=== PATIENT | male | born 1965 | race Caucasian/White ===

== ENCOUNTER 2024-10-29 16:18 | Emergency (ER) | payer OTHER, SELFPAY ==
--- NOTE | 2024-10-29 16:23 | ED.URI ---
HPI - URI/Sore Throat General Chief Complaint: Upper Respiratory Infection Stated Complaint: Cold Symptoms/Congestion Time Seen by Provider: 10/29/24 16:20 Source: patient Mode of arrival: ambulatory Limitations: no limitations History of Present Illness HPI Narrative: Patient is a 59-year-old male who presents with 3 weeks of cough and congestion. Patient has been taking [id number] medicine and states he had a few days of feeling better but symptoms returned and worsened 3 days ago. Patient denies any fever, chills, nausea, vomiting, diarrhea. Patient has history of COPD, pneumonia and bronchitis. Related Data Allergies Allergy/AdvReac Type Severity Reaction Status Date / Time Penicillins Allergy Mild HIVES/SWELL Verified 10/29/24 17:21 ING Review of Systems Review of Systems: All systems reviewed & are unremarkable except as noted in HPI and below Constitutional: Constitutional: Denies body ache(s), Denies chills, Denies fatigue, Denies fever(s), Denies headache(s), Denies malaise and Denies weakness Eyes: Eyes: Denies blurry vision, Denies itchy eyes and Denies loss of vision ENT: Denies otalgia, Denies headache(s), Reports nasal congestion, Denies sinus pain and Denies sore throat Cardiovascular: Cardiovascular: Denies chest pain, Denies irregular heart rhythm and Denies dyspnea Respiratory: Respiratory: Reports cough and Denies dyspnea Gastrointestinal: Gastrointestinal: Denies abdominal pain, Denies diarrhea, Denies nausea and Denies vomiting Musculoskeletal: Musculoskeletal: Denies back pain, Denies myalgias and Denies arthralgias Integumentary/Breasts: Skin/Breast: Denies pruritus and Denies rash Neurologic: Denies headache(s), Denies loss of vision and Denies weakness Psychiatric: Psychiatric: Reports no additional psychiatric complaints Endocrine: Endocrine: Denies fatigue Allergic/Immunologic: Allergic/Immunologic: Denies itchy eyes PMFSH Comments At time of signature, agree with nursing past medical, surgical, social and family history. There is no relevant family history pertinent to the presenting complaint. Exam Const: General: cooperative, healthy appearing, comfortable, no acute distress and well nourished Nutritional Appearance: well nourished Orientation/consciousness: patient oriented x3 Limitations: no limitations HENMT: Head: normal to inspection, normocephalic and atraumatic Ears: hearing grossly normal bilaterally, external ears normal, TM's normal bilaterally, EAC's normal and no periauricular adenopathy Face/Nose/Sinus: Normal external nose present, Abnormal mucous membranes and turbinates present erythematous bilateral and diffuse, normal facial exam, sinuses nontender and face symmetric Face and sinus: normal facial exam, sinuses nontender and face symmetric Mouth: Yes Normal oral and palatal mucosa present, Yes lip normal, Yes tongue normal, Yes Normal salivary glands and ducts present, Yes oropharynx normal and Yes moist mucous membranes Teeth and gingiva: dentition normal Throat: posterior oropharynx normal, tonsils normal and uvula midline Eyes: General: appearance normal, both eyes and all related structures Alignment and Position: alignment normal and position normal Periorbital: periorbital findings normal Eyelids: eyelids normal Pupils: Equal, round and reactive pupils present Neck: Neck: normal visual inspection, full ROM, no lymphadenopathy and supple Chest: Chest palpation & inspection: normal inspection of the chest and normal palpation of entire chest wall Resp: Effort & Inspection: normal respiratory effort and able to speak in complete sentences Auscultation: crackles (course) diffuse, no rales, no rhonchi, no wheezes and diminished lung sounds on the right in the lower lung sanchez Cardio: Rate: regular rate Rhythm: regular rhythm Heart sounds: S1 normal heart sound present and S2 normal heart sound present GI: Inspection: normal to inspection Skin: General skin exam: normal color and no rashes or lesions noted Neuro: General: patient oriented x3 and moves all extremities Cranial nerves: Yes Equal, round and reactive pupils present Speech: normal speech Gait exam (Neuro): Normal gait present Extrem: General: normal to inspection, full ROM and no edema Psych: Appearance: grossly normal and well kempt Mental Status: mental status grossly normal Speech and movement: Normal speech and movement present Affect: normal affect Attitude: cooperative Thought process: Normal thought process present Course Course Emergency Course: Discharge instructions reviewed with patient, as well as provided in writing per nursing staff. The instructions also include specific and strict return/GO TO THE ER as well as f/u information. All questions have been answered, and the patient deny any further questions with discharge and discharge plan. Portions of this record may have been created with voice recognition software Level of Care: Express Care Visit Vital Signs Vital signs: Vital Signs Temperature 36.8 C 10/29/24 16:38 Pulse Rate 73 10/29/24 16:38 Respiratory Rate 16 10/29/24 16:38 Blood Pressure 117/75 10/29/24 16:38 Pulse Oximetry 96 10/29/24 16:38 Temperature 36.8 C 10/29/24 16:38 Pulse Rate 73 10/29/24 16:38 Respiratory Rate 16 10/29/24 16:38 Blood Pressure 117/75 10/29/24 16:38 Pulse Oximetry 96 10/29/24 16:38 Reviewed MDM - URI/Sore Throat MDM Narrative Medical decision making narrative: Pt well hydrated appearing, in no respiratory distress, hemodynamically stable. Recommend supportive care. The patient is stable at time of discharge the clinical impression was discussed and the patient was given the opportunity to ask questions, which were addressed as completely as possible given the information available at present. Anticipatory guidance and return to care precautions were discussed and the importance of primary care follow-up was stressed and encouraged. The patient voiced understanding of the plan, indications to return, and the need for follow-up. Differential diagnosis considered: Mcnulty virus, strep pharyngitis, allergic rhinitis, upper respiratory tract infection, sinusitis, rhinosinusitis, nasopharyngitis. viral pharyngitis, otitis media, otitis externa, otitis effusion, foreign body, cerumen impaction, viral syndrome, and influenza.? Exam findings show no acute concerns or changes; patient is non-toxic appearing and is in no distress.? Patient is appropriate for outpatient treatment and follow-up.? Discharge Plan Discharge Clinical Impression: Upper respiratory infection with cough and congestion Patient Disposition: Home, Self-Care Condition: Stable Instructions: Upper Respiratory Infection (ED) Additional Instructions: Take antibiotic as prescribed. Take steroids in the morning with food. Use liquid cough medicine as needed. Use inhaler with spacer as needed. Other symptomatic treatments include: -Alternate Tylenol and Motrin per package directions for fever or pain. -Antihistamine medication such as Benadryl at night and Zyrtec/Claritin/Xuan during the day can help improve symptoms. -Use Flonase twice a day for 5 days then daily to help reduce the inflammation and dry up your sinuses. -You can also use Sudafed or Mucinex. Be sure to drink plenty of water with these medications at least 8 ounces with every dose and it is important to drink 8 to 10 glasses of water per day. Water is a natural decongestant -Eat and drink things that are easy to swallow, like tea or soup, or popsicles. -Oral rinses such as: Salt water gargles and/or may use topical anesthetic (eg. Chloraseptic spray) or lozenges to relieve dryness or throat pain). -Frequent hand washing or hand passenger interline clerk is one of the best ways to prevent spread of infection. -Using a vaporizer or humidifier at night will also help thin secretions and help with coughing up phlegm. -Follow up with primary care provider in 3-5 days if condition is not improving - For new or worsening symptoms go directly to the nearest ER Patient Language: Welsh Prescriptions: New promethazine-DM 6.25-15 mg/5 mL syrup 5 ml PO Q4-6H PRN (Reason: cough) Qty: 118 0RF azithromycin 250 mg tablet See Rx Instructions .ROUTE .COMPLEX Qty: 6 0RF Rx Instructions: For 250 mg dose pack: take 500 mg today (day 1), then 250 mg for 4 days (days 2-5) prednisone 20 mg tablet 40 mg PO DAILY 5 Days Qty: 10 0RF amoxicillin 875 mg tablet 875 mg PO Q12H 7 Days Qty: 14 0RF albuterol sulfate 90 mcg/actuation HFA aerosol inhaler 2 puff inhalation QID PRN (Reason: shortness of breath or wheezing) Qty: 6.7 0RF fluticasone propionate [Flonase Allergy Relief] 50 mcg/actuation spray,suspension 1 spray intranasal DAILY Qty: 16 0RF Rx Instructions: administer into each nostril loratadine 10 mg tablet 10 mg PO DAILY Qty: 30 0RF (DME) Aerochamber MV Spacer See Rx Instructions .Route Qty: 1 0RF Rx Instructions: As directed Follow-up/Referrals: PHYSICIAN,SURGICAL DENTAL ASSISTANT [Primary Care Provider] - Justice Rubalcava MD [Physician] - 3 Days ([facility]) Time of Disposition: 17:21
[2024-10-29 16:38] VITALS: BP 117/75; PULSE 73; RESP 16; TEMP 36.8; O2SAT 96
== END 2024-10-29 17:23 | disposition home or self-care (01) ==
PROVIDERS: Emergency Provider Nurse Practitioner Family
DX: J06.9 Acute upper respiratory infection, unspecified (principal)
CPT/HCPCS: 99203; G0463

== ENCOUNTER 2025-02-03 12:29 | Emergency (ER) | payer OTHER, SELFPAY ==
[2025-02-03 12:38] VITALS: BP 128/81; PULSE 91; RESP 16; TEMP 36.8; O2SAT 97
[2025-02-03 12:58] LABS: EDCOVIDSCREEN Negative (Negative); EDINFLUASCREEN Negative (Negative); EDINFLUBSCREEN Negative (Negative); EDSTREPNEGPOS1 Negative (Negative)
--- NOTE | 2025-02-03 14:53 | ED_ITS ---
HPI - URI/Sore Throat General Chief Complaint: Upper Respiratory Infection Stated Complaint: HEAD/CHEST COLD Time Seen by Provider: 02/03/25 13:10 Source: patient and RN notes reviewed Mode of arrival: ambulatory Limitations: no limitations History of Present Illness HPI Narrative: 59-year-old male presents Express Care complaining of upper respiratory symptoms for 2 days. Patient reports congestion, cough, sore throat. Patient reports coughing up phlegm as well Patient is taking [id number] Zyrtec and Flonase with some relief. Patient denies any chest pain, shortness of breath, earache, fevers, body aches, chills. Patient denies any significant past medical history Related Data Allergies Allergy/AdvReac Type Severity Reaction Status Date / Time Penicillins Allergy Mild HIVES/SWELL Verified 02/03/25 12:43 ING Review of Systems Review of Systems: CONSTITUTIONAL: Denies fever, chills, or sweats. EYES: Denies visual changes, redness, or discharge. ENT: Denies rhinorrhea, or otalgia. Positive for sore throat and congestion CARDIOVASCULAR: Denies chest pain, palpitations, or edema. RESPIRATORY: Positive for cough negative for dyspnea. GASTROINTESTINAL: Denies abdominal pain, nausea, vomiting, or diarrhea. GENITOURINARY: Denies dysuria or hematuria. SKIN: Denies rash or itching. MUSCULOSKELETAL: Denies back pain, joint pain, or myalgia. NEUROLOGIC: Denies headache, numbness, or weakness. PSYCHIATRIC: Denies anxiety or depression. All other systems reviewed are negative, except as documented in HPI. PMFSH Comments At the time of my signature, I reviewed and agree with the nursing past medical, surgical, social, and family history. There is no relevant family history pertinent to the patient complaint. Exam Narrative: GENERAL: This is a well-nourished, well-developed adult, in no apparent distress. They are non ill-appearing, nontoxic appearing. HEAD: normocephalic, atraumatic. EYES: Sclera clear/white. Vision is grossly intact. Conjunctiva injected and watery discharge. EARS: External ears normal, auditory canals clear and without drainage, TMs normal without perforation. Hearing grossly intact. NOSE: External nose normal with no obvious nasal discharge, nasal turbinates are erythematous, no rhinorrhea. THROAT: Mucous membranes moist, posterior pharynx erythemic without swelling. Nasal drip present. Uvula midline. NECK: Neck supple, non-tender without lymphadenopathy, masses or thyromegaly. CARDIOVASCULAR: Regular rate and rhythm without murmurs, gallops, or rubs. RESPIRATORY: Clear to auscultation. Breath sounds equal bilaterally. No wheezes, rales, or rhonchi. SKIN: warm, Dry, intact with no suspicious lesions or rash, good texture and turgor. NEURO: awake, alert, and oriented to person, place and time. There were no obvious focal neurologic abnormalities. EXTREMITIES: No joint tenderness, effusion, or edema noted. Course Course Level of Care: Express Care Visit Vital Signs Vital signs: Vital Signs Temperature 98.3 F 02/03/25 12:38 Pulse Rate 91 02/03/25 12:38 Respiratory Rate 16 02/03/25 12:38 Blood Pressure 128/81 02/03/25 12:38 Pulse Oximetry 97 02/03/25 12:38 Oxygen Delivery Room Air 02/03/25 12:38 Temperature 98.3 F 02/03/25 12:38 Pulse Rate 91 02/03/25 12:38 Respiratory Rate 16 02/03/25 12:38 Blood Pressure 128/81 02/03/25 12:38 Pulse Oximetry 97 02/03/25 12:38 Oxygen Delivery Room Air 02/03/25 12:38 Reviewed MDM - URI/Sore Throat MDM Narrative Medical decision making narrative: COVID and flu swab were negative. Rapid strep is negative. Throat culture pending. Symptoms are likely viral in etiology. Patient states that he has tried benzonatate in the past and it has not help with his cough and states promethazine has worked before. Will prescribe promethazine as needed for cough. Will also prescribe albuterol for any wheezing and cough. Discussed physical exam findings. Advised supportive measures and signs/symptoms to go to the ER. Pt is appropriate for outpt treatment and f/u. Differential Diagnosis Differential diagnosis: Likely upper respiratory infection, viral infection, bronchitis and pharyngitis Lab Data Attestation: I reviewed the patient's lab results. Labs: Lab Results 02/03/25 Range/Units 12:56 POC Influenza A Ag Negative (Negative) POC Influenza B Ag Negative (Negative) POC SARS CoV-2 Ag Negative (Negative) POC Grp A Strep Screen Negative (Negative) Critical Care Time Critical Care Time Critical Care Time: No Discharge Plan Discharge Clinical Impression: Upper respiratory infection Qualifiers: URI type: unspecified viral URI Qualified Code(s): J06.9 - Acute upper respiratory infection, unspecified Patient Disposition: Home Condition: Stable Instructions: Upper Respiratory Infection (ED) Additional Instructions: Her COVID and flu were negative. Your rapid strep swab was negative today at [facility]. You will be notified in a few days if the culture comes back positive for strep, and appropriate antibiotics will be called in for have you at that time. Your symptoms are likely due to a viral illness, which is not treated with antibiotics. Viral symptoms can be present for up to 10-14 days. Please take the promethazine as directed. Do not drive or operate heavy machinery if while taking this medication as it can make you drowsy. Use the albuterol inhaler as needed for cough or wheezing. Take Tylenol ibuprofen for fever or pain. Rest and stay hydrated. Follow up with your PCP in 5 days if symptoms are not improving. Go to the ER immediately if you develop difficulty breathing or swallowing Patient Language: Indonesian Prescriptions: New albuterol sulfate [Ventolin HFA] 90 mcg/actuation HFA aerosol inhaler 2 puff inhalation QID PRN (Reason: shortness of breath or wheezing) Qty: 8.5 0RF promethazine-DM 6.25-15 mg/5 mL syrup 5 ml PO Q4-6H PRN (Reason: cough) 3 Days Qty: 118 0RF No Action promethazine-DM 6.25-15 mg/5 mL syrup 5 ml PO Q4-6H PRN (Reason: cough) Qty: 118 0RF azithromycin 250 mg tablet See Rx Instructions .ROUTE .COMPLEX Qty: 6 0RF Rx Instructions: For 250 mg dose pack: take 500 mg today (day 1), then 250 mg for 4 days (days 2-5) prednisone 20 mg tablet 40 mg PO DAILY 5 Days Qty: 10 0RF amoxicillin 875 mg tablet 875 mg PO Q12H 7 Days Qty: 14 0RF albuterol sulfate 90 mcg/actuation HFA aerosol inhaler 2 puff inhalation QID PRN (Reason: shortness of breath or wheezing) Qty: 6.7 0RF fluticasone propionate [Flonase Allergy Relief] 50 mcg/actuation spray,suspension 1 spray intranasal DAILY Qty: 16 0RF Rx Instructions: administer into each nostril loratadine 10 mg tablet 10 mg PO DAILY Qty: 30 0RF (DME) Aerochamber MV Spacer See Rx Instructions .Route Qty: 1 0RF Rx Instructions: As directed Follow-up/Referrals: Charlette,Ingris Roper, TECHNOLOGIST INFECTIOUS DISEASE [Primary Care Provider] - Time of Disposition: 13:18
== END 2025-02-03 13:25 | disposition home or self-care (01) ==
DX: J06.9 Acute upper respiratory infection, unspecified (principal); Z20.822 Contact with and (suspected) exposure to COVID-19; I10 Essential (primary) hypertension
CPT/HCPCS: 87081; 87426; 87804; 87880; 99213; G0463

== ENCOUNTER 2025-06-16 14:11 | Outpatient (CLI) | payer OTHER, SELFPAY ==
--- NOTE | ~2025-06-16 | MR_ITS ---
EXAMINATION: MR knee LT wo con DATE: 06/16/2025 14:54 INDICATION: Unilateral primary osteoarthritis of the left knee TECHNIQUE: Magnetic resonance imaging (MRI) of the left knee was performed without intravenous contrast. Sequences included coronal PD-weighted FSE, coronal PD-weighted FS FSE, sagittal T2-weighted FSE, sagittal PD-weighted FS FSE and axial PD weighted fat saturated FSE. COMPARISON: None. FINDINGS: Medial compartment: Longitudinal horizontal tear extending to the superior articular surface of the body and posterior horn of the medial meniscus. The tear plane appears thickened and somewhat ill-defined at the meniscal body suggesting some secondary degeneration. There is mild partial-thickness cartilage loss with smooth chondral surface along the anterior weightbearing medial femoral condyle and the anterior half of the medial tibial plateau. A single tiny focus of subarticular edema-like signal change along the lateral aspect of the junction of the anterior to central weightbearing medial femoral condyle. Lateral compartment: Lateral meniscus is normal. Articular cartilage is normal. Patellofemoral compartment: Deep chondral ulceration along the medial patellar facet and apical ridge with minimal subarticular edema-like signal change along the lateral aspect of the apical ridge. There is additional deep chondral fissuring with more irregular chondral surface at the medial trochlea and trochlear groove and medial aspect of the lateral trochlea with mild underlying cortical irregularity and subarticular edema-like signal change at the medial trochlea. Ligaments and tendons: There is prominent thickening and increased intrasubstance of the anterior cruciate ligament particularly proximally but with intact flow signal intensity ligament fibers giving a celery stalk appearance consistent with mucoid degeneration without definitive tear. The posterior cruciate ligament is normal. The medial collateral ligament and fibular collateral ligament complex are normal. The extensor mechanism is normal. The visualized medial and lateral hamstring tendons as well as the iliotibial band are normal. Fluid: Small left knee joint effusion. No loose osteochondral bodies identified. Small Bravo's cyst. Osseous/other: Bone alignment is normal. Normal marrow signal site of the previously noted small regions of mild subarticular edema-like signal changes. Otherwise normal marrow signal with no fracture or pathologic marrow replacing process. IMPRESSION: 1. Longitudinal horizontal medial meniscal tear. 2. 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 Correlate with physical exam to asses for degree of functional competence. 3. 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 4. Small left knee joint effusion and small Bravo's cyst. Reviewed, dictated and finalized at location A. IMPRESSION: 1. Longitudinal horizontal medial meniscal tear. 2. 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 Correlate with physical exam to asses for degree of functional com petence. 3. Moderate medial and patellofemoral osteoarthritis with high-grade chondromal acia in the patellofemoral compartment. 4. Small left knee joint effusion and small Bravo's cyst.
== END 2025-06-16 14:12 | disposition home or self-care (01) ==
LOC: GOSHIMG 14:12
PROVIDERS: Visit Provider Orthopaedic Surgery
DX: M17.12 Unilateral primary osteoarthritis, left knee (principal); S83.242A Other tear of medial meniscus, current injury, left knee, initial encounter; X58.XXXA Exposure to other specified factors, initial encounter
CPT/HCPCS: 73721

== ENCOUNTER 2025-07-27 09:45 | Outpatient (RCR) | payer OTHER, SELFPAY ==
--- NOTE | 2025-05-11 11:51 | OPREHPOC ---
Outpatient Therapy Plan of Care This is a Multidisciplinary Plan of Care that may contain components documented by all disciplines (PT, OT, and ST.) PT Problem 1 PT Problem #1 Knowledge Deficit PT Goal 1 Goal / Goal Update 1. Patient to demonstrate independence with HEP for improved self-reliance of symptom management. Target Visit 8 PT Problem 2 PT Problem #2 Pain PT Goal 1 Goal / Goal Update 1. Patient to decrease subjective reports of pain to <4/10 after completing a work shift. 2. Pt will increase LEFS score by at least 9 points in order to demonstrate the minimal clinically important difference (MCID) in functional improvement. Target Visit 8 PT Problem 3 PT Problem #3 Impaired Range of Motion PT Goal 1 Goal / Goal Update 1. Patient to demonstrate an increase of L knee active range of motion of 5-115 degrees to improve mobility required for gait/stair negotiation. Target Visit 8 PT Problem 4 PT Problem #4 Impaired Strength PT Goal 1 Goal / Goal Update 1. Patient will demonstrate improved strength of the bilateral hip abductors and extensors to 4+/5 on manual muscle testing in order to improve gait stability and stair negotiation. Target Visit 8
--- NOTE | 2025-05-11 11:51 | PTOPEVAL1 ---
Assessment and note entered by Catrachito Meyer PT Evaluation Information Assessment Status Evaluation Diagnosis L knee OA ICD-10 Condition Codes (PT) Pain in left knee M25.562 Subjective Information Pt notes he had a knee arthroscopy about three years for a meniscus tear and to clean up some arthritis. Pt notes he knows he will eventually get a TKA but would like to wait a couple years to get him closer to care home age. Pt works at a [employer] and has to be able squat down, climb ladders, walk on uneven surfaces. Pt had an injection last week and was put on prednisone. Pt has the most difficulties with pain throughout work and has to rest and ice his knee every night. Reported Pain Level Pain Score 2: Self Report Assessment PT Clinical Summary Patient presents to physical therapy with a primary issue of chronic L knee pain. 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 Patient demonstrates hip weakness , L knee pain, decreased mobility, gait deficit ( lacking knee extension), and decreased flexibility that limit their ability to perform activities of daily living and functional movements. Patient will benefit from skilled physical therapy to address the above listed deficits and return to prior level of function. Home exercise program instructed and written handout provided, exercises tolerated well with no adverse effects to note post-session. Patient was educated on importance of adherence to home exercise program. Patient was also educated on anatomy, prognosis, home modalities, and plan of care Plan of Care Interventions Electrical Stimulation,Gait Training,Hot Pack/Cold Pack,Manual Therapy,Neuro Re-education, Therapeutic Activities,Therapeutic Exercise,Other PT Services Indicated Yes Treatment Frequency and 2x week 8 visits Duration These treatments will address the objective and functional deficits as defined above. The patient will be advanced safely and appropriately in order for the patient to progress towards his/her prior level of function. Additional exercises will be introduced and as well as a comprehensive home exercise program upon discharge, if needed, ?to ensure carryover of functional gains achieved in the clinic. This treatment plan has been reviewed and agreement upon by the patient.
--- NOTE | 2025-06-07 11:53 | PTOPPROG ---
Assessment and note entered by Catrachito Meyer, PT Evaluation Information Assessment Status Evaluation Diagnosis L knee OA ICD-10 Condition Codes (PT) Pain in left knee M25.562 Subjective Information Pt states he usual feels great after therapy but after a day at work the knee continues to be very painful and swell. Pt states he saw orthopedic surgeon and he recommended getting an MRI to rule out any tears. Assessment PT Clinical Summary Patient's L knee has made some improvements overall as evidenced by decrease in symptoms , and increased mobility, strength, and overall functional use of the extremity. However, some limitations are still present. Primarily due to pain when bending the knee limiting the pts ability to get in and out of his car, going down stairs, and work duties. Patient would benefit from continued skilled physical therapy services to address the above listed impairments and facilitate a return to their prior level of function. Plan of Care Interventions Electrical Stimulation,Gait Training,Hot Pack/Cold Pack,Manual Therapy,Neuro Re-education, Therapeutic Activities,Therapeutic Exercise,Other PT Services Indicated Yes Treatment Frequency and 1-2x week for 8 visits Duration These treatments will address the objective and functional deficits as defined above. The patient will be advanced safely and appropriately in order for the patient to progress towards his/her prior level of function. Additional exercises will be introduced and as well as a comprehensive home exercise program upon discharge, if needed, ?to ensure carryover of functional gains achieved in the clinic. This treatment plan has been reviewed and agreement upon by the patient.
--- NOTE | 2025-06-07 11:57 | PTOPPROG ---
Assessment and note entered by Catrachito Meyer PT Evaluation Information Assessment Status Progress Diagnosis L knee OA ICD-10 Condition Codes (PT) Pain in left knee M25.562 Subjective Information Pt states he usual feels great after therapy but after a day at work the knee continues to be very painful and swell. Pt states he saw orthopedic surgeon and he recommended getting an MRI to rule out any tears. Pt notes continued difficulty and pain with bending his knee affecting his ADLs and work duties. Assessment PT Clinical Summary Patient's L knee has made some improvements overall as evidenced by decrease in symptoms , and increased mobility, strength, and overall functional use of the extremity. However, some limitations are still present. Primarily due to pain when bending the knee limiting the pts ability to get in and out of his car, going down stairs, and work duties. Patient would benefit from continued skilled physical therapy services to address the above listed impairments and facilitate a return to their prior level of function. Plan of Care Interventions Electrical Stimulation,Gait Training,Hot Pack/Cold Pack,Manual Therapy,Neuro Re-education, Therapeutic Activities,Therapeutic Exercise,Other PT Services Indicated Yes Treatment Frequency and 1-2x week for 8 visits Duration These treatments will address the objective and functional deficits as defined above. The patient will be advanced safely and appropriately in order for the patient to progress towards his/her prior level of function. Additional exercises will be introduced and as well as a comprehensive home exercise program upon discharge, if needed, ?to ensure carryover of functional gains achieved in the clinic. This treatment plan has been reviewed and agreement upon by the patient.
--- NOTE | 2025-07-27 10:36 | PTOPDC ---
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 Pt states he saw orthopedic surgeon and received another injection. He states orthopedic surgeon recommended a meniscus surgery, but he would like to avoid surgery if possible. Pt states he has seen good improvements with physical therapy he notes he is able to make it through a work day with much more tolerable pain levels but still has flare up that get pretty intense. Pt reports he has continued difficulty with end range bending of his knee and certain job activites. Reported Pain Level Pain Score 1: Self Report Assessment PT Clinical Summary Patient has seen good reductions in overall pain levels during the course of therapy. However, the patient still reports occasional flare-ups and symptoms remain consistent with a meniscal tear, as confirmed by MRI imaging. The patient is being discharged with a comprehensive Home Exercise Program (HEP) and has been scheduled for follow-up with an orthopedic surgeon to discuss potential further surgical interventions for definitive management. Plan of Care PT Services Indicated No
== END 2025-07-27 15:43 | disposition home or self-care (01) ==
LOC: ANHGOSHPT 09:45
PROVIDERS: Visit Provider Orthopaedic Surgery
DX: M25.562 Pain in left knee (principal)
CPT/HCPCS: 97110; 97112; 97140; 97161; 97530

== ENCOUNTER 2025-08-07 08:19 | Day surgery (SDC) | payer OTHER, SELFPAY ==
[2025-07-24 13:34] VITALS: BMI 35.2
--- NOTE | 2025-08-07 07:58 | PM.IMHP ---
H&P: HPI History of Present Illness Date/Time: 08/07/25 07:58 Chief Complaint: Screening for colorectal cancer Narrative: 60 yo man presents for colonoscopy. His last colonoscopy was 7-8 years ago. Denies hematochezia or melena. Denies fam hx colon cancer. Review of Systems Review of Systems: All systems reviewed & are unremarkable except as noted in HPI and below Constitutional: Constitutional: Denies chills, Denies fever(s), Denies headache(s) and Denies weight loss Eyes: Eyes: Denies change in vision ENT: Denies dizziness, Denies headache(s), Denies neck mass and Denies throat swelling Cardiovascular: Cardiovascular: Denies chest pain, Denies lightheadedness and Denies dyspnea Respiratory: Respiratory: Denies cough, Denies dyspnea and Denies wheezing Gastrointestinal: Gastrointestinal: Denies abdominal pain, Denies change in bowel habits, Denies nausea and Denies vomiting Genitourinary: Genitourinary: Denies hematuria and Denies dysuria Musculoskeletal: Musculoskeletal: Reports as per HPI Integumentary/Breasts: Skin/Breast: Reports as per HPI Neurologic: Denies dizziness and Denies headache(s) Allergic/Immunologic: Allergic/Immunologic: Denies throat swelling and Denies wheezing [facility] Social History Social History Smoking packs per day: 1 Smoking cigarettes per day: 20.0 Years smoked: 8 Smoking pack-years: 8.00 Smoking status: Former smoker Tobacco type: cigarettes Alcohol intake: never Substance use: never Substance use type: does not use Lack of Transportation: No Lack of Food: Never True Current Housing: I Have Housing Concerned About Future Housing: No Difficulty Paying Gas/Electric Bills: No Difficulty Paying for Meds: No Currently Unemployed: No Education: High School Diploma/GED Difficulty w/ Childcare or Family Care: No Meds Home Medications and Allergies Home Medications ?Medication ?Instructions ?Recorded ?Confirmed ?Type lisinopril 40 mg tablet 40 mg PO DAILY 05/04/25 08/07/25 History metoprolol succinate 25 mg 25 mg PO DAILY 05/04/25 08/07/25 History tablet,extended release 24 hr omeprazole 10 mg capsule,delayed 10 mg PO DAILY 05/04/25 08/07/25 History release rosuvastatin 20 mg tablet 20 mg PO DAILY 05/04/25 08/07/25 History Allergies Allergy/AdvReac Type Severity Reaction Status Date / Time Penicillins Allergy Mild HIVES/SWELL Verified 08/07/25 08:52 ING Exam Const: General: no acute distress and alert Orientation/consciousness: patient oriented x3 HENMT: Head: normocephalic and atraumatic Ears: hearing grossly normal bilaterally Face/Nose/Sinus: Normal nares present Mouth: Yes Normal oral and palatal mucosa present Eyes: Periorbital: periorbital findings normal Sclera: sclerae normal EOM: EOMs intact bilaterally Neck: Neck: normal visual inspection, no lymphadenopathy and trachea midline Chest: Chest palpation & inspection: normal inspection of the chest Resp: Effort & Inspection: normal respiratory effort Auscultation: clear to auscultation bilaterally Cardio: Jugular venous distension: no JVD Rate: regular rate Rhythm: regular rhythm Heart sounds: S1 normal heart sound present and S2 normal heart sound present Peripheral pulses: Peripheral pulses 2+ throughout GI: Inspection: normal to inspection GI Palp: Yes Soft to palpation, No Tenderness to palpation present (GI), No Guarding due to palpation present (GI) and No Rebound tenderness present Percussion: Yes normal to percussion Auscultation: normal bowel sounds : General: Yes no CVA tenderness Back/Spine/Pelvis: Back: no CVA tenderness Neuro: General: patient oriented x3, no focal motor deficits and CN's II-XI intact bilaterally Cognition (Neuro): normal cognition Speech: normal speech Motor exam (neuro): 5/5 motor strength present throughout Extrem: General: capillary refill normal and no clubbing, cyanosis or edema Assessment and Plan Assessment and plan (1) Screening for colorectal cancer: Code(s): Z12.11 - Encounter for screening for malignant neoplasm of colon; Z12.12 - Encounter for screening for malignant neoplasm of rectum Status: Acute Assessment and Plan: I have recommended colonoscopy. I have discussed the procedure, risks, benefits, and alternatives. Questions were answered. Patient is agreeable to proceed.
--- OUTSIDE RECORDS SUMMARY | 2025-08-07 08:48 | XMS_ITS | Clinical Summary ---
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 Role Phone Margaret Goldman SHEEP BONER Primary Care Provider + Allergies Active Allergy Reactions Criticality Noted Date Comments Penicillins Unknown 04/03/2021 Medications omeprazole (PriLOSEC) 40 mg capsule Take 1 capsule (40 mg total) by mouth daily 02/22/2021 Active meloxicam (MOBIC) 15 mg tablet Take 1 tablet (15 mg total) by mouth daily as needed Active lisinopriL (PRINIVIL,ZESTR IL) 40 mg tablet Take 1 tablet (40 mg total) by mouth daily 90 tablet 1 08/19/2021 Active metoprolol XL (TOPROL-XL) 100 mg 24 hr tablet Take 1 tablet (100 mg total) by mouth daily 90 tablet 3 08/26/2021 Active rosuvastatin (CRESTOR) 20 mg tablet TAKE 1 TABLET NIGHTLY 90 tablet 3 07/06/2023 Active Active Problems No known active problems Surgical History Surgery Date Site/Laterality Comments SHOULDER SURGERY PLANTAR FASCIA SURGERY Medical History Medical History Date Comments Hypertension Hyperlipidemia Acid indigestion GERD (gastroesophageal reflux disease) Arthritis Family History Medical History Relation Name Comments Hypertension Father Ed Hyperlipidemia Mother Alicja Relation Name Status Comments Father Ed Alive Mother Alicja Alive Social History Tobacco Use Types Packs/Day Years Used Date Smoking Tobacco: Former Cigarettes Smokeless Tobacco: Former Tobacco Cessation:Counseling Given: Not Answered Sex and Gender Information Value Date Recorded Sex Assigned at Not on file Legal Sex Male 3:30 PM CDT Gender Identity Not on file Sexual Orientation Not on file Obstetrics History Last Filed Vital Signs Vital Sign Reading Time Taken Comments Blood Pressure 118/80 08/31/2024 11:24 AM SCOWMAN Pulse 69 08/31/2024 11:24 AM SCOWMAN Temperature - - Respiratory Rate - - Oxygen Saturation 92% 08/31/2024 11:24 AM SCOWMAN Inhaled Oxygen Concentration - - Weight 104.6 kg (230 lb 8 oz) 08/31/2024 11:24 A M SCOWMAN Height 167.6 cm (5' 6) 08/31/2024 11:24 AM SCOWMAN Body Mass Index 37.2 08/31/2024 11:24 AM SCOWMAN Plan of Treatment Health Maintenance Due Date Last Done Comments Colon Cancer Screening-Colonoscopy 1967 Depression Screening 1967 Hepatitis C Screening 1967 Prostate Cancer Screening-PSA 1967 Hepatitis B Screening 1985 Regular Well Visit/Exam 18-64 1985 Zoster Vaccine (1 of 2) 2017 Influenza Vaccine (#1) 2025 0, 09/05/2019, 08/29/2019, Additional history exists DTaP/Tdap/Td Vaccine (2 - Td or Tdap) 08/13/2026 08/13/2016 Pneumococcal vaccine <65 Aged Out 11/28/2013 No longer eligible based on patient's age to complete [place] [address] [facility] Care Teams 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
--- OUTSIDE RECORDS SUMMARY | 2025-08-07 08:48 | XMS_ITS | Data Portability ---
Author Organization [place] [facility], Main Office Address [address] [place] [address] Care Team Providers Care Political Geographer Name Role Phone MARGARET SERRANO Primary Care Provider MARGARET SERRANO Referring Provider [phone] NANCIE GUTIERREZ Primary Care Provider Assessment No assessment recorded. Plan of Treatment Reminders Order Date Submit Date Provider Last Modified By Organization Details Last Modified Time Details Appointments Follow Up 15 2025 08:30A KAILEY Munson Not available Not available Not available Lab PSA, serum or plasma 2024 025 [facility], [address] [facility] [address], [address], 06/08/2025 08:20:22 CMP, serum or plasma 2024 025 [facility], [address] [facility] [address], [address], 06/08/2025 08:20:22 CBC w/ auto diff 2024 025 CECILIA [facility], [address] [facility] [address], [place], [address], 06/02/2025 08:50:53 HbA1c (hemoglob in A1c), blood 2024 025 [facility], [address] [facility] [address], [place], [address], 06/08/2025 08:20:22 lipid panel, serum 2024 025 [facility], [address] [facility] [address], [place], [address], 06/08/2025 08:20:22 TSH, ultra-sen sitive, serum 2024 025 [facility], [address] [facility] [address], [place], [address], 06/08/2025 08:20:22 hemoglobi n A1C, fingersti ck 2024 025 [facility], [address] [place], [address], 12/09/2024 12:31:57 CBC w/ auto diff 2023 024 [facility], [address], [address], 05/03/2024 02:48:30 enteric bacteria, organism specific culture, stool 2023 024 [facility] (Lab), [address] [place], [address], 05/03/2024 09:19:28 c diff toxin genes, qual, PCR, stool 2023 024 [facility] (Lab), [address] [place], [address], 05/02/2024 22:30:44 O&P (ova & parasites ), stool 2023 024 [facility] (Lab), [address] [place], [address], 05/06/2024 21:18:50 HbA1c (hemoglob in A1c), blood 2023 024 [facility], [address], [address], 05/03/2024 02:48:31 lipid panel, serum 2023 024 [facility], [address] [facility] [address], [place], [address], 05/03/2024 02:48:29 CMP, serum or plasma 2023 024 [facility], [address] [facility] [address], [place], [address], 05/03/2024 02:48:30 Referral gastroent erologist referral - Please call patient to schedule an appointme nt. Thank you. 2024 [facility], [address], [address], [place], [address], 06/07/2025 10:18:12 Procedures None recorded. Surgeries None recorded. Imaging None recorded. Medication Orders lisinopri l 40 mg tablet 2024 025 [facility]DDVTECH[facility], [address] [place] [address], [address], [place], [place], [id number], 12/09/2024 12:30:50 metoprolo l succinate ER 100 mg tablet,ex tended release 24 hr 2024 025 [facility], [address] [place] [address], [address], [place], [place], [id number], 12/09/2024 12:30:48 tamsulosi n 0.4 mg capsule 2024 025 [facility], [address] [place], [place], [id number], 06/01/2025 10:25:18 metformin ER 500 mg tablet,ex tended release 24 hr 2024 025 [facility]40, [address] [place], [place], [id number], 06/01/2025 10:24:59 omeprazol e 40 mg capsule,d elayed release 2024 025 ATHENAFAX [facility], [address], [address], [place], [place], [id number], 12/09/2024 12:30:49 rosuvasta tin 20 mg tablet 2024 025 [facility], [address], [address], [place], [place], [id number], 12/09/2024 12:30:49 Imodium A-D 2 mg tablet 2023 [facility]24 [facility] [address] [place] [address], [address], 12/09/2024 12:04:56 Trulicity 0.75 mg/0.5 mL subcutane ous pen injector 2023 024 [facility], [address] [place] [address], [address], 12/09/2024 12:05:07 levofloxa zachery 500 mg tablet [address] [facility], [address] [place], [place], [id number], 05/02/2024 10:27:24 Medrol (Kevin) 4 mg tablets in a dose pack 2023 024 [address], [address] [place], [place], [id number], 05/02/2024 10:27:31 azithromy zachery 250 mg tablet [address] [facility]27, [address] [facility], [place], [id number], 05/02/2024 10:27:17 Patient TargetsNo targets recorded. Patient InstructionsNo instructions recorded. Reason for Referral Release Of Information Clerk Referral for Screening for malignant neoplasm of colon Please call patient to schedule an appointment. Thank you. Referring Physician: Nancie Gutierrez, Family Medicine, Encounter Date: 06/01/2025 Results Created Date Observation Date Name Description Value Unit Range Abnormal Flag Note LastModifiedBy Organization Detail LastModifiedTime 05/02/20 24 05/03/2024 LIPID PANEL , STAND DEN cholesterol, total 124 mg/dL <200 normal Not Available [facility] [address] [place], [address], 05/03/2024 02:48:29 05/02/20 24 05/03/2024 LIPID PANEL , STAND DEN HDL cholesterol 33 mg/dL > or = 40 low Not Available [facility] [address] [address] [place], [address], 05/03/2024 02:48:29 05/02/2005/03/2024 LIPID PANEL , STAND DEN triglyceride s 200 mg/dL <150 high If a non-f astin g speci men was colle cted, consi bubba repea t trigl yceri de testi ng on a fasti ng speci men if clini talat indic ated. Denny moreno et al. J. of Clin. Lipid ol. 2015; 9:129 -169. Not Available [facility] [address] [place], [address], 05/03/2024 02:48:29 05/02/2005/03/2024 LIPID PANEL , STAND DEN LDL-choleste rol 64 mg/dL _(kaila c) normal Refer ence range : <100 Jesus able range <100 mg/dL for prima ry preve ntion ; <70 mg/dL for patie nts with CHD or diabe tic patie nts with > or = 2 CHD risk facto rs. LDL-C is now calcu lated using the Radha n-Hop kins julio goode n, which is a valid ated novel druo leslie wilson than the Fried jeremy equat ion in the estim ation of LDL-C . Radha dumas SS et al. WILLY. 2013; 310(1 9): 2061- 2068 (http ://ed ucati on.Qu rolandOpen Lending. com/f aq/FA Q164) Not Available [employer] [address] [address] [place], [address], 05/03/2024 02:48:29 05/02/20 24 05/03/2024 LIPID PANEL , STAND DEN chol/HDLC ratio 3.8 (calc ) <5.0 normal Not Available [address] [address] [address], [place], [address], 05/03/2024 02:48:29 05/02/20 24 05/03/2024 LIPID PANEL , STAND DEN non HDL cholesterol 91 mg/dL _(kaila c) <130 normal For patie nts with diabe naomi plus 1 major ASCVD risk facto r, treat ing to a non-H DL-C goal of <100 mg/dL (LDL- C of <70 mg/dL ) is lavern [facility] optio n. Not Available [address] [address] [place], [address], 05/03/2024 02:48:29 05/02/20 24 05/03/2024 COMPR EHENS SHAJI METAB OLIC PANEL glucose 98 mg/dL 65-99 normal Fasti ng refer ence inter sunitha Not Available [employer] [facility] [address] [address] [place], [address], 05/03/2024 02:48:30 05/02/20 24 05/03/2024 COMPR EHENS SHAJI METAB OLIC PANEL urea nitrogen (BUN) 16 mg/dL 7-25 normal Not Available [employer] [facility] [address] [address] [place], [address], 05/03/2024 02:48:30 05/02/20 24 05/03/2024 COMPR EHENS SHAJI METAB OLIC PANEL creatinine 0.90 mg/dL 0.70-1 .30 normal Not Available [address], [address], 05/03/2024 02:48:30 05/02/20 24 05/03/2024 COMPR EHENS SHAJI METAB OLIC PANEL eGFR 100 mL/mi n/1.7 3m2 > or = 60 normal Not Available [address], [address], 05/03/2024 02:48:30 05/02/20 24 05/03/2024 COMPR EHENS SHAJI METAB OLIC PANEL BUN/creatini ne ratio SEE NOTE: (calc ) 6-22 Not Repor lavonne: BUN and Creat inine are withi n refer ence range . Not Available [address], [address], 05/03/2024 02:48:30 05/02/20 24 05/03/2024 COMPR EHENS SHAJI METAB OLIC PANEL sodium 143 mmol/ L 135-14 6 normal Not Available [address], [address], 05/03/2024 02:48:30 05/02/20 24 05/03/2024 COMPR EHENS SHAJI METAB OLIC PANEL potassium 4.6 mmol/ L 3.5-5. 3 normal Not Available [address], [address], 05/03/2024 02:48:30 05/02/20 24 05/03/2024 COMPR EHENS SHAJI METAB OLIC PANEL chloride 108 mmol/ L 98-110 normal Not Available [employer] [address], [address], 05/03/2024 02:48:30 05/02/20 24 05/03/2024 COMPR EHENS SHAJI METAB OLIC PANEL carbon dioxide 27 mmol/ L 20-32 normal Not Available [address], [address], 05/03/2024 02:48:30 05/02/20 24 05/03/2024 COMPR EHENS SHAJI METAB OLIC PANEL calcium 9.0 mg/dL 8.6-10 .3 normal Not Available [address], [address], 05/03/2024 02:48:30 05/02/20 24 05/03/2024 COMPR EHENS SHAJI METAB OLIC PANEL protein, total 6.5 g/dL 6.1-8. 1 normal Not Available [address], [address], 05/03/2024 02:48:30 05/02/20 24 05/03/2024 COMPR EHENS SHAJI METAB OLIC PANEL albumin 4.2 g/dL 3.6-5. 1 normal Not Available [address], [address], 05/03/2024 02:48:30 05/02/20 24 05/03/2024 COMPR EHENS SHAJI METAB OLIC PANEL globulin 2.3 g/dL_ (calc ) 1.9-3. 7 normal Not Available [address], [address], 05/03/2024 02:48:30 05/02/20 24 05/03/2024 COMPR EHENS SHAJI METAB OLIC PANEL albumin/glob ulin ratio 1.8 (calc ) 1.0-2. 5 normal Not Available [address], [address], 05/03/2024 02:48:30 05/02/20 24 05/03/2024 COMPR EHENS SHAJI METAB OLIC PANEL bilirubin, total 0.5 mg/dL 0.2-1. 2 normal Not Available [address], [address], 05/03/2024 02:48:30 05/02/20 24 05/03/2024 COMPR EHENS SHAJI METAB OLIC PANEL alkaline phosphatase 75 U/L 35-144 normal Not Available [facility] [address], [address], 05/03/2024 02:48:30 05/02/20 24 05/03/2024 COMPR EHENS SHAJI METAB OLIC PANEL AST 22 U/L 10-35 normal Not Available [address], [address], 05/03/2024 02:48:30 05/02/20 24 05/03/2024 COMPR EHENS SHAJI METAB OLIC PANEL ALT 31 U/L 9-46 normal Not Available [address], [address], 05/03/2024 02:48:30 05/02/20 24 05/03/2024 CBC (INCL UDES DIFF/ PLT) white blood cell count 8.9 thous and/u L 3.8-10 .8 normal Not Available [address], [address], 05/03/2024 02:48:30 05/02/20 24 05/03/2024 CBC (INCL UDES DIFF/ PLT) red blood cell count 5.35 veronique on/uL 4.20-5 .80 normal Not Available [employer] [address], [address], 05/03/2024 02:48:30 05/02/20 24 05/03/2024 CBC (INCL UDES DIFF/ PLT) hemoglobin 16.4 g/dL 13.2-1 7.1 normal Not Available [employer] [address], [address], 05/03/2024 02:48:30 05/02/20 24 05/03/2024 CBC (INCL UDES DIFF/ PLT) hematocrit 49.0 % 38.5-5 0.0 normal Not Available [address], [address], 05/03/2024 02:48:30 05/02/20 24 05/03/2024 CBC (INCL UDES DIFF/ PLT) MCV 91.6 fL 80.0-1 00.0 normal Not Available [address], [address], 05/03/2024 02:48:30 05/02/2005/03/2024 CBC (INCL UDES DIFF/ PLT) MCH 30.7 pg 27.0-3 3.0 normal Not Available [address], [address], 05/03/2024 02:48:30 05/02/20 24 05/03/2024 CBC (INCL UDES DIFF/ PLT) MCHC 33.5 g/dL 32.0-3 6.0 normal Not Available [address], [address], 05/03/2024 02:48:30 05/02/20 24 05/03/2024 CBC (INCL UDES DIFF/ PLT) RDW 12.3 % 11.0-1 5.0 normal Not Available [address], [address], 05/03/2024 02:48:30 05/02/20 24 05/03/2024 CBC (INCL UDES DIFF/ PLT) platelet count 223 thous and/u L 140-40 0 normal Not Available [address], [address], 05/03/2024 02:48:30 05/02/20 24 05/03/2024 CBC (INCL UDES DIFF/ PLT) MPV 10.4 fL 7.5-12 .5 normal Not Available [address], [address], 05/03/2024 02:48:30 05/02/20 24 05/03/2024 CBC (INCL UDES DIFF/ PLT) absolute neutrophils 5741 cells /uL 1500-7 800 normal Not Available [address], [address], 05/03/2024 02:48:30 05/02/20 24 05/03/2024 CBC (INCL UDES DIFF/ PLT) absolute lymphocytes 2109 cells /uL 850-39 00 normal Not Available [address], [address], 05/03/2024 02:48:30 05/02/20 24 05/03/2024 CBC (INCL UDES DIFF/ PLT) absolute monocytes 748 cells /uL 200-95 0 normal Not Available [address], [address], 05/03/2024 02:48:30 05/02/20 24 05/03/2024 CBC (INCL UDES DIFF/ PLT) absolute eosinophils 240 cells /uL 15-500 normal Not Available [address], [address], 05/03/2024 02:48:30 05/02/20 24 05/03/2024 CBC (INCL UDES DIFF/ PLT) absolute basophils 62 cells /uL 0-200 normal Not Available [facility] [address], [address], 05/03/2024 02:48:30 05/02/20 24 05/03/2024 CBC (INCL UDES DIFF/ PLT) neutrophils 64.5 % normal Not Available [address], [address], 05/03/2024 02:48:30 05/02/20 24 05/03/2024 CBC (INCL UDES DIFF/ PLT) lymphocytes 23.7 % normal Not Available [facility] [address] [address] [place], [address], 05/03/2024 02:48:30 05/02/20 24 05/03/2024 CBC (INCL UDES DIFF/ PLT) monocytes 8.4 % normal Not Available [facility] [address], [address], 05/03/2024 02:48:30 05/02/20 24 05/03/2024 CBC (INCL UDES DIFF/ PLT) eosinophils 2.7 % normal Not Available [facility] [address], [address], 05/03/2024 02:48:30 05/02/20 24 05/03/2024 CBC (INCL UDES DIFF/ PLT) basophils 0.7 % normal Not Available [facility] [address], [address], 05/03/2024 02:48:30 05/02/2005/03/2024 HEMOG LOBIN A1C hemoglobin A1C 6.4 %_of_ total _HGB <5.7 high For someo ne witho ut known diabe naomi, a hemog lobin A1c value betwe en 5.7% and 6.4% is consi stent with predi abete s and shoul d be confi rmed with a follo w-up test. For someo ne with known diabe naomi, a value <7% indic ates that their diabe naomi is well contr olled . A1c targe ts shoul d be indiv idual ized based on durat ion of diabe naomi, age, comor bid condi tions , and other consi derat ions. This assay resul t is consi stent with an incre ased risk of diabe naomi. Curre ntly, no conse nsus exist s regar ding use of hemog lobin A1c for diagn osis of diabe naomi for child charlie. This test was perfo rmed on the Dinora catarino c503 platf orm. Effec tive , a natalya jenkins in test platf orms from the [facility] tect to the Dinora catarino c503 may have shift ed HbA1c resul ts erica red to histo rical resul ts. Based on labor atory valid ation testi ng condu cted at [facility] , the [facility]ora platf orm relat shaji to the [facility] platf orm had an avera ge incre ase in HbA1c value of < or = 0.3%. This diffe rence is withi n accep lavonne varia bilit y estab lishe d by the Natio nal [employer] hemog lobin Stand idrisz ation Progr am. Note that not all indiv idual s will have had a shift in their resul ts and direc t erica rison s betwe en histo rical and curre nt resul ts for testi ng condu cted on diffe rent platf orms is not recom iza d. Not Available [facility] [address] [address] [place], [address], 05/03/2024 02:48:31 12/09/19 25 12/09/2024 hemog lobin A1C, finge rstic k HgbA1C 6.3 Not Available [facility] [address] [facility], [place], [address], 12/09/2024 12:20:07 06/20/20 25 06/16/2025 MRI, knee, w/o contr ast No observ ation record ed. [facility] [address] [facility] [address], [place], [address], 06/20/2025 15:36:18 Result Notes None recorded. Problems Name Problem SNOMED Code Status Onset Date Resolution Date Notes Provider Name and Address Organization Details Recorded Time Excessive cerumen in ear canal 129592363 Completed Not Available [facility] 3 06:11:09 Acute sinusitis 16507967 Completed Not Available [facility] 3 06:11:09 Liver function tests outside reference range 495907687 Active Not Available [facility] 3 06:11:09 Gastroeso phageal reflux disease 707289094 Active Not Available [facility] 3 06:11:09 Knee pain Completed Not Available [facility] 3 06:11:10 Hypertens shaji disorder 49840977 Active Not Available [facility] 3 06:11:10 Hand pain 70718878 Completed Not Available [facility] 3 06:11:10 Hyperlipi demia 24829827 Active Not Available [facility] 3 06:11:11 Pain of joint 17382385 Active Not Available [facility] 3 06:11:11 Heartburn 82086264 Active 2017 Not Available [facility] 3 06:11:09 Arthritis 2418605 Active 2017 Not Available [facility] 3 06:11:10 Porokerat osis 197103244 Active 2017 Not Available [facility] 3 06:11:10 Metatarsa lgia 77366772 Active 2018 Not Available [facility] 3 06:11:08 Bilateral plantar fasciitis 72858295869 962413 Active 2018 Not Available [facility] 3 06:11:09 Plantar fasciitis 697717684 Active 2019 Not Available [facility] 3 06:11:09 Essential hypertens ion 25715799 Active 2019 Not Available [facility] 3 06:11:11 Serum vitamin B12 below reference range 350033906 Active 2019 Not Available [facility] 3 06:11:09 Hyperglyc emia 27172164 Active 2019 Not Available [facility] 3 06:11:11 Pain of left heel 83901831033 86960 Active 2020 Not Available [facility] 3 06:11:09 Polyarthr opathy 94173358 Active 2020 Not Available [facility] 3 06:11:10 Obesity 073209057 Active 2020 Not Available [facility] 3 06:11:10 Plantar fasciitis of left foot 19272383057 125040 Active 2020 Not Available [facility] 3 06:11:09 Postopera tive visit 567309420 Active 2020 Not Available [facility] 3 06:11:09 Diastolic dysfuncti on 3471954 Active 2020 Not Available [facility] 3 06:11:10 Effusion of joint of left knee 47574442509 9105 Active 2021 Not Available [facility] 3 06:11:10 Pain of left knee joint 71233579524 4107 Active 2021 Not Available [facility] 3 06:11:10 Tear of medial meniscus of knee 002512285 Active 2021 Not Available [facility] 3 06:11:09 Tear of medial meniscus of knee 452068493 Active 2021 Not Available [facility] 3 06:11:09 Osteoarth ritis 082846559 Active 2022 Margaret Serrano NP [address], [place], [address] , [employer] 3 09:24:16 Gastroeso phageal reflux disease without esophagit is 351662324 Active 2023 Adrian Garay MD [address], [place], [address] , [employer] [facility] 4 10:50:14 Pain of bilateral hands 91581871617 878723 Active 2023 Adrian Garay MD [address], [place], [address] , [employer] 4 11:04:30 Acute right otitis media 386325820 Active 2023 KAILEY Jiang [address], [place], [address] , [employer] [facility] 4 14:25:06 Prediabet es 583966923 Active 2023 Nancie HowardwhitneyISIS valentinoP [address] [facility], [address] [address], [place], [address] , [facility] 4 11:01:59 Diarrhea 65814381 Active [address] [facility], [address] [address], [place], [address] , [facility] 4 10:39:33 Chronic diarrhea 796668886 Active [address] [facility], [address] [address], [place], [address] , [facility] 4 09:20:05 Increased frequency of urination 509083199 Active [address] [facility], [address] [address], [place], [address] , [facility] 5 12:25:09 Notes:Some problems listed i n Document: #[id number] could not be added to this patient's chart. Please review this document and add these problems to the patient's chart manually as needed. Problem Notes None recorded. Procedures Surgical History Date Name Laterality Status Provider Name and Address Organization Details Recorded Time Foot Surgery completed Not Available [facility] 12/24/2022 06:06:33 Imaging Results None recorded. Procedure Notes None recorded. Medical Equipment None Reported. Allergies Allergen ID Allergen Name Allergen Category Reaction Reaction Severity Criticality Documentation Date Start Date Code Code System Note Provider Name and Address Organization Details Recorded Time 98895 Wellbutri n medicatio n hives Not available Not available 12/24/2022 42386 RxNorm Not Available [facility] 3 06:17:08 70800 Product containin g penicilli n (product) medicatio n Not available Not available Not available 12/24/2022 91613 8001 SNOMED Not Available [facility] 3 06:17:08 Medications Name Sig Start Date Stop Date Status Note LastModified by Organization Details LastModified Time Prescript ion - Prior Authoriza tion Request 07/08 /2024 completed Not Available Not Available Not Available cetirizin e 5 mg-pseudo ephedrine ER 120 mg tablet,ex tended release,1 2hr 11/01 completed Not Available Not Available Not Available cyclobenz aprine 10 mg tablet TAKE 1 TABLET BY MOUTH EVERY 12 HOURS NEEDED 09/02 completed Not Available Not Available Not Available promethaz ine-DM 6.25 mg-15 mg/5 mL oral syrup TAKE 5 ML BY MOUTH EVERY 4 TO 6 HOURS FOR 3 DAYS NEEDED FOR COUGH 06/01 completed Not Available Not Available Not Available prednison e 10 mg tablet TAKE 1 TABLET BY MOUTH TWICE DAILY FOR 10 DAYS 06/01 completed Not Available Not Available Not Available azithromy zachery 250 mg tablet TAKE 2 TABLETS BY MOUTH FOR 1 DAY THEN TAKE 1 TABLET BY MOUTH DAILY FOR 4 DAYS DIRECTED 05/02 completed Not Available Not Available Not Available benzonata te 200 mg capsule TAKE 1 CAPSULE BY MOUTH THREE TIMES DAILY NEEDED 01/26 completed Not Available Not Available Not Available metoprolo l succinate ER 50 mg tablet,ex tended release 24 hr 04/25 completed Not Available Not Available Not Available hydrocodo ne 5 mg-acetam inophen 325 mg tablet TAKE 1 TABLET BY MOUTH EVERY 4 HOURS 04/29 completed Not Available Not Available Not Available urea 40 % topical cream APPLY TO THE AFFECTED AREA(S) OF FEET BY TOPICAL ROUTE 2 TIMES PER DAY 11/01 completed Not Available Not Available Not Available meloxicam 15 mg tablet TAKE 1 TABLET DAILY 11/23 completed Not Available Not Available Not Available prednison e 20 mg tablet TAKE 2 TABLETS BY MOUTH DAILY WITH FOOD FOR 5 DAYS 01/26 completed Not Available Not Available Not Available metoprolo l succinate ER 100 mg tablet,ex tended release 24 hr TAKE 1 TABLET DAILY 2024 active Not Available Not Available Not Avai lable simvastat in 10 mg tablet TK 1 T PO Q NIGHT 09/02 completed Not Available Not Available Not Available Nexium 40 mg capsule,d elayed release Take 1 capsule every day by oral route for 90 days. active Not Available Not Available No t Available omeprazol e 40 mg capsule,d elayed release TAKE 1 CAPSULE DAILY QAM 2024 active Not Available Not Available Not Avai lable tramadol 50 mg tablet Take 1 tablet every 8 hours by oral route as needed for 7 days. active Not Available Not Available No t Available ondansetr on 8 mg disintegr ating tablet active Not Available Not Available Not Available prednison e 10 mg tablets in a dose pack Take 1 tab by mouth, 3 times a day for 3 daysTake 1 tab by mouth 2 times a day for 2 daysTake 1 tab by mouth once a day for 1 day 10/28 completed Not Available Not Available Not Available meloxicam 7.5 mg tablet TAKE 1 TABLET EVERY 12 HOURS NEEDED active Not Available Not Available No t Available Nicoderm CQ 7 mg/24 hr daily transderm al patch Apply 1 patch every day by transder mal route. 12/20 completed Not Available Not Available Not Available oxycodone -acetamin ophen 5 mg-325 mg tablet TAKE 1 TABLET BY MOUTH EVERY 6 HOURS NEEDED FOR PAIN 06/21 completed Not Available Not Available Not Available Imodium A-D 2 mg tablet Take 2 tablets at first loose stool, repeat with each loose stool followin g, do not exceed 8 tablets in 24 hrs 12/09 completed Not Available Not Available Not Available tamsulosi n 0.4 mg capsule TAKE 1 CAPSULE BY MOUTH EVERY DAY DIRECTED 06/01 completed Not Available Not Available Not Available Kenalog 10 mg/mL suspensio n for injection In office injectio n administ ered by the provider 04/29 completed [facility]: [phone] 4-20 Not Available Not Available Not Available Nicoderm CQ 14 mg/24 hr daily transderm al patch Apply 1 patch every day by transder mal route. 12/20 completed Not Available Not Available Not Available benzonata te 100 mg capsule TAKE 1 CAPSULE BY MOUTH EVERY 8 HOURS NEEDED 05/02 completed Not Available Not Available Not Available oseltamiv ir 75 mg capsule TAKE 1 CAPSULE BY MOUTH TWICE DAILY FOR 5 DAYS 01/26 completed Not Available Not Available Not Available lisinopri l 10 mg tablet active Not Available Not Available Not Available hydrochlo rothiazid e 12.5 mg capsule Take 1 capsule every day by oral route for 90 days. active Not Available Not Available No t Available metoprolo l succinate ER 25 mg tablet,ex tended release 24 hr 04/25 completed Not Available Not Available Not Available lisinopri l 10 mg-hydroc hlorothia zide 12.5 mg tablet TAKE 1 TABLET DAILY DIRECTED 11/01 completed Not Available Not Available Not Available levofloxa zachery 500 mg tablet TAKE 1 TABLET BY MOUTH EVERY DAY 05/02 completed Not Available Not Available Not Available methylpre dnisolone 4 mg tablets in a dose pack FOLLOW PACKAGE DIRECTIO NS 05/02 completed Not Available Not Available Not Available albuterol sulfate HFA 90 mcg/actua tion aerosol inhaler INHALE 2 PUFFS BY MOUTH FOUR TIMES DAILY NEEDED FOR SHORTNES S OF BREATH OR WHEEZING 06/01 completed Not Available Not Available Not Available ipratropi um bromide 42 mcg (0.06 %) nasal spray 11/01 completed Not Available Not Available Not Available AmLactin 12 % lotion Apply 1 applicat ion twice a day by topical route as needed. 04/25 completed Not Available Not Available Not Available lisinopri l 40 mg tablet 1 tab po daily 2024 active Not Available Not Available Not Avai lable cefdinir 300 mg capsule 11/18 completed Not Available Not Available Not Available fluticaso ne propionat e 50 mcg/actua tion nasal spray,thais pension USE 2 SPRAYS IEN HS. 04/29 completed Not Available Not Available Not Available metformin ER 500 mg tablet,ex tended release 24 hr TAKE 1 TABLET BY MOUTH EVERY DAY DIRECTED 06/01 completed Not Available Not Available Not Available doxycycli ne hyclate 100 mg tablet TAKE 1 TABLET BY MOUTH TWICE DAILY FOR 10 DAYS 01/26 completed Not Available Not Available Not Available naproxen 500 mg tablet TAKE 1 TABLET BY MOUTH TWICE DAILY WITH FOOD 04/29 completed Not Available Not Available Not Available tobramyci n 0.3 %-dexamet hasone 0.1 % eye drops,thais pension INT 1 GTS AEY QID 04/29 completed Not Available Not Available Not Available rosuvasta tin 20 mg tablet Take 1 tablet every day by oral route at bedtime for 90 days. 2024 active Not Available Not Available Not Avai lable Crestor 5 mg tablet Take 1 tablet every day by oral route as directed for 90 days. active Not Available Not Available No t Available Boostrix Tdap 2.5 Lf unit-8 mcg-5 Lf/0.5 mL intramusc ular syringe ADM 0.5ML IM UTD active Not Available Not Available No t Available hydrochlo rothiazid e 12.5 mg tablet active Internal note: This medicati on previous ly had a stop reason of entered in error. If necessar y, please contact the listed source to delete this medicati on.Exter nal note: This medicati on previous ly had a stop reason of entered in error. Not Available Not Available Not Available azelastin e 205.5 mcg (0.15 %) nasal spray 11/18 completed Not Available Not Available Not Available Vimovo 500 mg-20 mg tablet,im mediate and delay release Take 1 tablet twice a day by oral route with meals for 90 days. active Not Available Not Available No t Available Suprep Bowel Prep Kit 17.5 gram-3.13 gram-1.6 gram oral solution 11/18 completed Not Available Not Available Not Available ropivacai ne (PF) 5 mg/mL (0.5 %) injection solution Take 20 mg by injectio n route. 04/29 completed Not Available Not Available Not Available Virtussin AC 10 mg-100 mg/5 mL oral liquid TK 5 ML PO Q 4 H PRF COUGH 11/01 completed Not Available Not Available Not Available Trulicity 0.75 mg/0.5 mL subcutane ous pen injector Inject 0.75 mg every week by subcutan eous route as directed for 90 days. 12/09 completed Not Available Not Available Not Available Fluzone Quad (PF) 60 mcg (15 mcg x 4)/0.5 mL IM syringe PHARMACI ST ADMINIST ERED IMMUNIZA TION ADMINIST ERED AT TIME OF DISPENSI NG 11/01 completed Not Available Not Available Not Available Wegovy 0.25 mg/0.5 mL subcutane ous pen injector Inject 0.25 mg every week by subcutan eous route as directed . 02/08 completed Not Available Not Available Not Available Ozempic 0.25 mg or 0.5 mg (2 mg/3 mL) subcutane ous pen injector Inject 0.25 mg every week by subcutan eous route as directed for 90 days. 05/02 completed Not Available Not Available Not Available Zepbound 2.5 mg/0.5 mL subcutane ous pen injector Inject 2.5 mg every week by subcutan eous route as directed for 28 days. 05/02 completed Not Available Not Available Not Available Vitals Date Recorded Body height Body mass index (BMI) Body weight Body temperature Heart rate Respiratory rate Oxygen saturation Oxygen saturation in Arterial blood by Pulse oximetry Pain severity - 0-10 verbal numeric rating [Score] - Reported Systolic And Diastolic Provider Name and Address Organization Details Last Updated DateTime 5 167.64 cm 37 kg/m2 219057. 75 g 97.8 [degF] 71 /min 20 /min 94 % 94 % 0 122/80 mm[Hg] Margaret Francois RN [facility] [employer] 5 12:07:58 Date Recorded Body height Body mass index (BMI) Body weight Body temperature Pain severity - 0-10 verbal numeric rating [Score] - Reported Oxygen saturation Oxygen saturation in Arterial blood by Pulse oximetry Respiratory rate Heart rate Systolic And Diastolic Provider Name and Address Organization Details Last Updated DateTime 4 167.64 cm 38.7 kg/m2 410420. 17 g 97.8 [degF] 0 73 % 73 % 20 /min 63 /min 158/98 mm[Hg] Margaret Francois RN [facility] [employer] 4 14:09:13 Date Recorded Body height Body mass index (BMI) Body weight Body temperature Heart rate Respiratory rate Oxygen saturation Oxygen saturation in Arterial blood by Pulse oximetry Systolic And Diastolic Provider Name and Address Organization Details Last Updated DateTime 4 167.64 cm 37 kg/m2 910062. 75 g 98.2 [degF] 82 /min 20 /min 92 % 92 % 152/74 mm[Hg] Nancie Gutierrez, PEDIATRIC OCCUPATIONAL THERAPIST [address] [facility], [facility] [address], [place], [address], [place] [facility] [employer] 4 10:37:09 Date Recorded Body height Body mass index (BMI) Body weight Body temperature Heart rate Respiratory rate Oxygen saturation Oxygen saturation in Arterial blood by Pulse oximetry Pain severity - 0-10 verbal numeric rating [Score] - Reported Systolic And Diastolic Provider Name and Address Organization Details Last Updated DateTime 4 167.64 cm 37.2 kg/m2 727462. 4 g 98.1 [degF] 71 /min 20 /min 95 % 95 % 0 160/110 mm[Hg] Margaret Francois RN [facility] [employer] [facility] 4 10:30:56 Date Recorded Body height Body mass index (BMI) Body weight Body temperature Heart rate Respiratory rate Oxygen saturation Oxygen saturation in Arterial blood by Pulse oximetry Pain severity - 0-10 verbal numeric rating [Score] - Reported Systolic And Diastolic Provider Name and Address Organization Details Last Updated DateTime 5 167.64 cm 36.7 kg/m2 616661. 92 g 97.9 [degF] 83 /min 20 /min 93 % 93 % 0 146/70 mm[Hg] Margaret Francois RN [facility] [employer] [facility] 5 10:27:55 Social History Question Answer Notes LastModified by Organizat ion Details LastModified Time Tobacco Smoking Status Never Smoker Not Available [facility] 12/24/2022 06:04:29 Do You Have An Advance Directive? No Information not available 04/29/2023 Do You Wear A Helmet When Biking? Yes [id number] Information not available 12/24/2022 Is Blood Transfusion Acceptable In An Emergency? Yes Information not available 04/29/2023 What Is Your Level Of Caffeine Consumption? Occasional [id number] Information not available 12/24/2022 How Much Tobacco Do You Chew? None MIGRATION.[id number] Information not available 12/24/2022 What Is Your Code Status? Full Code Information not available 04/29/2023 In The 14 Days Before Symptom Onset, Have You Had Close Contact With A Laboratory-confir med COVID-19 While That Case Was Ill? No [id number] Information not available 12/24/2022 In The 14 Days Before Symptom Onset, Have You Had Close Contact With A Person Who Is Under Investigation For COVID-19 While That Person Was Ill? No MIGRATION.[id number] 0692 Information not available 12/24/2022 What Type Of Diet Are You Following? REGULAR MIGRATION.[id number] Information not available 12/24/2022 Have There Been Any Changes To Your Family Or Social Situation? No MIGRATION.[id number] 2727 Information not available 12/24/2022 Do You Use Insect Repellent Routinely? Yes MIGRATION.[id number] Information not available 12/24/2022 [facility] Information not available 05/02/2024 Do You Have A Medical Power Of Cold Working Supervisor? No Information not available 04/29/2023 How Many Children Do You Have? -2 Information not available 05/02/2024 Do You Have Any Pets? Yes MIGRATION.[id number] [id number] Information not available 12/24/2022 What Is Your Relationship Status? MIGRATION.[id number] 1472 Information not available 12/24/2022 Do You Use Your Seat Belt Or Car Seat Routinely? Yes MIGRATION.919974 6246 Information not available 12/24/2022 Do You Have Smoke And Carbon Monoxide Detectors In Your Home? Yes MIGRATION.176101 4547 Information not available 12/24/2022 Are You Passively Exposed To Smoke? No MIGRATION.339968 2086 Information not available 12/24/2022 Are There Any Smokers In Your House? No MIGRATION.624978 9158 Information not available 12/24/2022 How Much Tobacco Do You Smoke? No MIGRATION.[id number] 5469 Information not available 12/24/2022 Do You Participate In Social Media? Yes MIGRATION.134082 8740 Information not available 12/24/2022 Do You Use Sunscreen Routinely? Yes MIGRATION.515956 2590 Information not available 12/24/2022 Has Tobacco Cessation Counseling Been Provided? No MIGRATION.500914 8155 Information not available 12/24/2022 Have You Recently Traveled Abroad? No MIGRATION.036983 5353 Information not available 12/24/2022 Do You Have Any Dietary Restrictions? No MIGRATION.747871 2326 Information not available 12/24/2022 Sex: Male Functional Status Question Answer Note LastModified by Organizat ion Details LastModified Time Do you use any illicit or recreational drugs? No MIGRATION.[id number] 6222 Information not available 12/24/2022 What is your level of alcohol consumption? None MIGRATION.435211 5710 Information not available 12/24/2022 Do you or have you ever used smokeless tobacco? Never used smokeless tobacco MIGRATION.669591 1102 Information not available 12/24/2022 Are you currently employed? Yes Information not available 04/29/2023 What is your occupation? [employer] MIGRATION.[id number] 2815 Information not available 12/24/2022 Do you or have you ever used e-cigarettes or vape? Never used electronic cigarettes MIGRATION.[id number] 2449 Information not available 12/24/2022 What is your exercise level? None Active MIGRATION.[id number] 7731 Information not available 12/24/2022 Mental Status Question Answer Note LastModified by Organization D etails LastModified Time Do you feel stressed (tense, restless, nervous, or anxious, or unable to sleep at night)? [id number] Information not available 05/02/2024 Family History Relationship Description Onset Age of this Age Resolved Age Notes LastModified by Organization Details LastModified Time Father Hypertensive disorder [id number] Not available 12/24/2022 06:06:35 Notes:cancer - grandparents, uncle Medical History Condition Response BLINDNESS N RHEUMATIC FEVER N KIDNEY STONES N BLADDER PROBLEMS N MRSA N OTHER # 1 N POLIO N LUNG DISEASE/DISORDER N RADIATION / CHEMOTHERAPY N COPD N Other # 2 N BLOOD DISEASES N SURGERY N EAR OR HEARING PROBLEMS N MUMPS N FEMALE PROBLEMS / INFECTIONS N DEPRESSION (INCLUDING POST ) N BOWEL PROBLEMS N STROKE/TIA N THYROID DISEASE N ULCERS N BENIGN PROSTATIC HYPERPLASIA N MEASLES N CERVICALGIA N TB SKIN TEST N MYOCARDIAL INFARCTION N PARAPELGIA N OBESITY Y GERD/NAUSEA Y ANEURYSM N URINARY/BLADDER/KIDNEY PROBLEMS N CORONARY ARTERY DISEASE (CAD) N MENIERE'S DISEASE N ADDICTION CONCERNS N ENDOMETRIOSIS N USE OF BLOOD THINNERS N SKIN PROBLEMS N EMPHYSEMA N GASTROINTESTINAL DISORDER N MUSCLE,JOINT OR BONE PROBLEMS N GASTROINTESTINAL BLEEDING N BLOOD CLOTS N ASTHMA N CATARACTS N Abdominal Pain Y ERECTILE DYSFUNCTION N GI PROBLEMS N CHF N Low Testosterone N NEUROPATHY N INFERTILITY N AIDS/HIV N FRACTURES N CHEMOTHERAPY / RADIATION N VISION/EYE PROBLEMS N LIVER DISEASE N MALE HYPOGONADISM N HYPERTENSION Y ANXIETY DISORDER Y BLOOD TRANSFUSION N ANEMIA/BLOOD DISORDER N CHRONIC EAR INFECTIONS N BRONCHITIS N TUBERCULOSIS N GLAUCOMA N FOOT PROBLEM N DIVERTICULITIS N SLEEP APNEA N CHICKENPOX N ALLERGIES/HAYFEVER N INFECTIOUS DISEASE N PROSTATE N HEART ARRHYTHMIA N INSOMNIA N HIGH CHOLESTEROL / HYPERLIPIDEMIA Y HYPERTHYROIDISM N EYE PROBLEMS N EATING DISORDER N NEUROLOGICAL PROBLEMS N EDEMA N CHRONIC PAIN SYNDROME N HYPOTHYROIDISM N CONSTIPATION N CAROTID BLOCKAGE N BACK / NECK PROBLEMS N HAVE YOU BEEN HOSPITALIZED OR SEEN IN [facility] IN THE PAST YEAR ? N ATHEROSCLEROSIS N BREAST PROBLEMS N DIALYSIS N ECZEMA N FIBROMYALGIA N OSTEOPOROSIS N ARTHRITIS Y NO SIGNIFICANT PAST MEDICAL HISTORY N APPENDICITIS N DIABETES, TYPE N BAD TEETH N HEARTBURN / REFLUX N ADD/ADHD N AUTISM SPECTRUM DISORDER (ASD) N HEPATITIS / LIVER DISEASE N PULMONARY DISEASE N GOUT N SLEEP DISORDER N ALZHEIMER'S DISEASE N PAIN N HERPES N DEMENTIA N SEIZURES/EPILEPSY N HEADACHES/MIGRAINES N VASCULAR DISEASE N PACEMAKER N DIZZINESS N KIDNEY DISEASE N HEART DISEASE/HEART PROBLEMS N SCARLET FEVER N MULTIPLE SCLEROSIS N MENTAL DISORDER/ILLNESS N DEVELOPMENTAL OR BEHAVIORAL DISORDERS N CARDIAC ARRHYTHMIA N CANCER: SPECIFY N PNEUMONIA N Gall Stones N ATRIAL FIBRILLATION N PULMONARY EMBOLISM N AUTOIMMUNE DISEASE N Immunizations Vaccine Type Date Status Note Provider Nam e and Address Organization Details Recorded Time COVID-19, mRNA, LNP-S, PF, 100 mcg/0.5mL dose or 50 mcg/0.25mL dose 1 completed Not Available [facility] 12/24/2022 06:16:45 COVID-19, mRNA, LNP-S, PF, 100 mcg/0.5mL dose or 50 mcg/0.25mL dose 1 completed Not Available [facility] 12/24/2022 06:16:46 Influenza, split virus, quadrivalent, preservative 0 completed Not Available [facility] 12/24/2022 06:16:46 Influenza, split virus, quadrivalent, preservative 9 completed Not Available [facility] 12/24/2022 06:16:46 Influenza, split virus, quadrivalent, preservative 9 completed Not Available [facility] 12/24/2022 06:16:46 Influenza, split virus, quadrivalent, preservative 8 completed Not Available [facility] 12/24/2022 06:16:46 Tdap 6 completed Not Available [facility] 12/24/2022 06:16:46 Influenza, split virus, trivalent, preservative 6 completed Not Available [facility] 12/24/2022 06:16:46 pneumococcal polysaccharide PPV23 4 completed Not Available [facility] 12/24/2022 06:16:46 Influenza, split virus, quadrivalent, PF 2 completed Not Available [facility] 12/24/2022 06:16:46 Past Encounters Encounter ID Performer Location Encounter Start Date Encounter Closed Date Diagnosis/Indication Diagnosis SNOMED-CT Code Diagnosis ICD10 Code Diagnosis IMO Codes Diagnosis Note [id number] Adrian Garay MD [facility] [address] [address] 01/03/2021 00:00:00 01/03/2021 17:00:15 [id number] BAIRON AponteATHENA_M IGRATION_ DEFAULT_1 _1 , 01/07/2021 00:00:00 01/10/2021 19:16:01 [id number] BAIRON AponteATHENA_M IGRATION_ DEFAULT_1 _1 , 01/28/2021 00:00:00 01/28/2021 14:42:44 [id number] Adrian Garay MD [address] [address] 01/29/2021 00:00:00 01/29/2021 20:35:28 [id number] BAIRON AponteATHENA_M IGRATION_ DEFAULT_1 _1 , 02/11/2021 00:00:00 02/11/2021 10:54:32 [id number] Denny Sweeney DPM [facility] [address] [place] [address] 02/21/2021 00:00:00 02/21/2021 10:39:10 [id number] Denny Sweeney DPM [facility] [address] [place] [address] 03/07/2021 00:00:00 03/07/2021 10:28:31 [id number] Adrian Garay MD [address] [address] 06/21/2021 00:00:00 06/21/2021 14:56:59 [id number] Adrian Garay MD [address] [address] 04/25/2022 00:00:00 04/25/2022 15:17:54 [id number] Adrian Garay MD [address] [address] 08/25/2022 00:00:00 08/25/2022 13:03:19 [id number] Roly Landeros MD [facility] [place] [address] [place] [address] 09/02/2022 00:00:00 09/02/2022 14:54:31 [id number] Roly Landeros MD [facility] [place] [address] [place] [address] 09/11/2022 00:00:00 09/11/2022 10:33:42 [id number] Adrian Garay MD [address] [address] 10/28/2022 00:00:00 10/28/2022 09:44:17 [id number] Roly Landeros MD [facility] [place] [address] [place] [address] 11/24/2022 00:00:00 11/24/2022 10:21:41 [id number] Margaret Serrano NP [address] [address] 04/29/2023 09:07:58 04/29/2023 09:54:45 Essential hypertension 43408159 I10 Lisinopril 40 mg po daily.Meto prolol Succinate ER 100 mg po daily. Hyperlipidemia 97905919 E78.5 Rosuvastat in 20 mg po nightly. Obese 059964186 E66.9 diet and exercise Gastroesop hageal reflux disease 623874819 K21.9 Omeprazole 40 mg po daily. Serum fina min B12 below reference range 866485466 R79.89 mens once a day mvi Osteoarthritis 276069485 M19.90 Meloxicam 15 mg po daily. Using prn.Flare- change in weather. Thyroid di sorder screening 124800266 Z13.29 Screening for malignant neoplasm of prostate 477195549 Z12.5 Anemia screening 9082775 07 Z13.0 Diabetes m ellitus screening 345780831 Z13.1 [id number] Adrian Garay MD [address] [address] 11/23/2023 10:46:53 11/23/2023 11:13:45 Hypertensive disorder 36950409 I10 BP diary education given. Hyperlipidemia 64619525 E78.5 Gastroesop hageal reflux disease without esophagitis 479210903 K21.9 Obesity 479262495 E66.9 Diet and exercise explained. Pain of bi lateral hands 5483909110 8177080 M79.837 [id number] Adrian Garay MD [address] [address] 01/27/2024 13:57:24 01/27/2024 14:36:18 Acute right otitis media 618416033 H66.91 [id number] Adrian Garay MD [address] [address] 03/02/2024 10:25:56 03/02/2024 11:47:44 Acute right otitis media 599706645 H66.91 Will consider ENT referral if not improved. [id number] Adrian Garay MD [address] [address] 05/02/2024 10:14:07 05/02/2024 10:56:56 Diarrhea 72050750 K52.89 R19.7 Hyperlipidemia 64918025 E78.5 Prediabetes 166302747 R7 3.03 Obesity 455552346 E66.9 [id number] Adrian Garay MD [facility] [address] [place] [address] 12/09/2024 11:50:16 12/09/2024 14:09:48 Prediabetes 058542728 R73.03 Last A1C 6.4. Interested in GLP1 Hypertensive disorder 38 796717 I10 BP well controlled Gastroesop hageal reflux disease without esophagitis 812966039 K21.9 Hyperlipidemia 40496406 E78.5 Increased frequency of urination 013489256 R35.0 States incomplete emptying, urgency [id number] Adrian Garay MD [address] [address] 06/01/2025 10:14:56 06/01/2025 10:57:52 Physical examination 4487284 Z00.00 [id number] [facility] scussed diet and exercisePa tient questions answered Screening for malignant neoplasm of colon 920218182 Z12.11 [id number] Last screen 7 years ago Screening for malignant neoplasm of prostate 407639490 Z12.5 003492 Hypertensive disorder 38 552334 I10 BP well controlled Hyperlipidemia 52350911 E78.5 Well controlled , will check labs Osteoarthritis 431748721 M19.90 Pain in the left knee, is receiving steroid injections and PT. Would like to push off replacemen t until he can retire Prediabetes 813304711 R7 3.03 Last A1C 6.4. Interested in GLP1If A1C is not >6.5 insurance does not cover GLP-1, in that case we will consider sleep study Health Concerns Section Related Observation LastModified by Organization Detai ls LastModified Time None Recorded Concern Status LastModified by Organization Details LastModified Time None Recorded Advance Directives Directive N: Payers Insurance Date Sequence Insurance Name Policy Number Policy [place] Covered Member ID [place] Member ID Guarantor Name 06/01/2025 [facility] [employer] SELF SELF [employer] 06/01/2025 1 [place] [employer] [facility] [id number] [employer] [id number] [employer] Notes Date Note Type Note Provider Name and Address Organization Details Recorded Time 01/27/2024 text/html Jon Solis is a 58 year old male patient of Dr. Garay here today for an ear complaint. Today, he had a lot of pressure in the right ear with some tinnitus. He has recently had two viruses which have aggravated these symptoms. He went to in [place] during his last virus approx. 1 month ago and they told him he had some fluid in his ear but it would clear up. KAILEY Jiang [address], [address], [place], [address], [employer] 01/27/2024 14:37:37 03/02/2024 text/html Home Solis is a 58 year old male patient here for a sick visit. He states that he has a sore throat, right ear pain, red/crusty eyes, and a dry cough. This began Thursday evening. KAILEY Jiang [address], [address], [place], [address], [employer] 03/02/2024 10:59:59 05/02/2024 text/html Jon Solis is a 58 year old male here for an annual wellness. He has concerns with diarrhea, he has taken pepto and it will go away but come back. This has been going on since February. He will have a bowel movement every 2-3 hours. He is taking magnesium but does not believe He has a history of hypertension. His BP on arrival is 160/110, he states he has not taken BP meds today. He takes lisinopril and metoprolol He has a history of GERD. He is taking omeprazole 40 mg PO daily. He takes meloxicam 7.5mg for joint pain daily Hyperlipidemia managed by rosuvastatin Prediabetes will attempt GLP 1 coverage Flu shots: OVID vaccines: 04/2021, olonoscopy : more than 5 years ago, will consider if stool samples are negative KAILEY Jiang [address], [address], [place], [address], [employer] 05/02/2024 10:55:54 12/09/2024 text/html Home Solis is a 59 year old male patient Concerns with increased urine frequency Needs med refills Would like GLP-1 for weight KAILEY Jiang [address], [address], [place], [address], [employer] [facility] 12/09/2024 13:14:18 06/01/2025 text/html Jon Solis is a 59 year old male here for an annual wellness. He has a history of hypertension. His BP on arrival is 146/70, home BPs range 125-130s/80s. He takes lisinopril and metoprolol He has a history of GERD. He is taking omeprazole 40 mg PO daily. He takes meloxicam 7.5mg for joint pain daily Hyperlipidemia managed by rosuvastatin Prediabetes will attempt GLP 1 coverage Flu shots: OVID vaccines: 04/2021, 05/2021Tdap: 2016Pneumonia: 2014Shingrix:Colon oscopy: approx 7 years ago KAILEY Jiang [address], [address], [place], [address], [employer] 06/01/2025 10:56:25
--- OUTSIDE RECORDS SUMMARY | 2025-08-07 08:48 | XMS_ITS | Clinical Summary ---
Author Organization [facility] Address [facility] [place] [address] Care Team Providers Care Retinal Angiographer Name Role Phone Unavailable Primary Care Provider Unavailabl e Social History Tobacco Use Types Packs/Day Years Used Date Smoking Tobacco: Never Assessed Sex and Gender Information Value Date Recorded Sex Assigned at Not on file Legal Sex Male 5:31 PM CDT Gender Identity Not on file Sexual Orientation Not on file Plan of Treatment Health Maintenance Due Date Last Done Comments Colorectal Cancer Screening Colonoscopy (10 Years) 1967 Annual Physical 1970 Hepatitis C 1985 DTaP, Tdap and Td Vaccines ( 1 - Tdap) 1986 Hepatitis B Vaccines (1 of 3 - 19+ 3-dose series) 1986 Pneumococcal Vaccine: 50+ Ye ars (1 of 1 - PCV) 2017 Zoster Vaccines (1 of 2) 2017 COVID-19 Vaccine ( - 2023-2 5 season) 2025 Influenza Adult (#1) 2025 Meningococcal B Vaccine Aged Out No l onger eligible based on patient's age to complete this topic Meningococcal Vaccine Aged Out No danielle marimar eligible based on patient's age to complete this topic RSV Immunizations Under 20 Months Aged Out No longer eligible based on patient's age to complete this topic
[2025-08-07 08:53] VITALS: BP 142/97; PULSE 76; RESP 18; TEMP 36.8; O2SAT 96
[2025-08-07] MEDS: LACTATED RINGERS 1,000 ML 150 ML IV CONT (08:56)
--- NOTE | 2025-08-07 09:41 | WPDANESEPPF ---
Anes - Initial Pre Proc Eval Procedure: Operation Date: 08/07/25 10:15 Proposed Procedures p Screening Colonoscopy - Rob Washington DO Date/Time: 08/07/25 09:41 Surgeon: Rob Washington DO Pre Op Diagnosis: Noeplasm Screening Patient Data Age: 60 Gender: M Height: 1.7 m Weight: 101.75 kg Last Vital Signs Temp 98.2 F 08/07/25 08:53 Pulse 76 08/07/25 08:53 Resp 18 08/07/25 08:53 BP 142/97 H 08/07/25 08:53 Pulse Ox 96 08/07/25 08:53 O2 Del Method Room Air 08/07/25 08:53 Allergies Allergy/AdvReac Type Severity Reaction Status Date / Time Penicillins Allergy Mild HIVES/SWELL Verified 08/07/25 08:52 ING Home Medications ?Medication ?Instructions ?Recorded ?Confirmed ?Type lisinopril 40 mg tablet 40 mg PO DAILY 05/04/25 08/07/25 History metoprolol succinate 25 mg 25 mg PO DAILY 05/04/25 08/07/25 History tablet,extended release 24 hr omeprazole 10 mg capsule,delayed 10 mg PO DAILY 05/04/25 08/07/25 History release rosuvastatin 20 mg tablet 20 mg PO DAILY 05/04/25 08/07/25 History Patient hx anesthesia problems: none Family hx anesthesia problems: none Results Review: All pre-operative results and documents have been reviewed as part of the pre-operative evaluation. [facility] Social History Social History (Reviewed 07/25/25 @ 07:08 by Laila Shetty [facility]) Smoking packs per day: 1 Smoking cigarettes per day: 20.0 Years smoked: 8 Smoking pack-years: 8.00 Smoking status: Former smoker Tobacco type: cigarettes Alcohol intake: never Substance use: never Substance use type: does not use Lack of Transportation: No Lack of Food: Never True Current Housing: I Have Housing Concerned About Future Housing: No Difficulty Paying Gas/Electric Bills: No Difficulty Paying for Meds: No Currently Unemployed: No Education: High School Diploma/GED Difficulty w/ Childcare or Family Care: No Anes - Eval Final PreProcedure Day of Procedure 08/07/25 09:41 Heart: regular rate and rhythm Lungs: clear to auscultation Airway: Mallampati scale class II Neurological: alert and oriented Last oral intake: >/= 8 hours ASA classification: II Anesthetic plan: proceed Anesthesia type and monitoring: monitored anesthesia care Results Review: All pre-operative results and documents have been reviewed as part of the pre-operative evaluation. Informed Consent: The patient's anesthetic plan and its attendant risks and benefits were discussed with the patient/family/POA. Questions were solicited and answers provided to the satisfaction of the patient/family/POA.
[2025-08-07 10:54] VITALS: BP 122/80; PULSE 76; RESP 16; O2SAT 100
--- NOTE | 2025-08-07 10:58 | WPDANESPN ---
Anes - Prog Note Post-Op Date/Time: 08/07/25 10:58 Vital Signs: Last Vital Signs Temp 98.2 F 08/07/25 08:53 Pulse 76 08/07/25 08:53 Resp 18 08/07/25 08:53 BP 142/97 H 08/07/25 08:53 Pulse Ox 96 08/07/25 08:53 O2 Del Method Room Air 08/07/25 08:53 Pain Score (VAS): no I/O: Intake & Output 08/06/25 08/07/25 08/07/25 23:59 07:59 15:59 Intake Total 0 Balance 0 Patient Feedback: Patient satisfied with anesthetic care.
[2025-08-07 11:04] VITALS: BP 132/88; PULSE 77; RESP 16; O2SAT 94
[2025-08-07 11:13] VITALS: BP 122/85; PULSE 64; RESP 18; O2SAT 94
== END 2025-08-07 11:17 | disposition home or self-care (01) ==
PROVIDERS: Visit Provider Surgery
PROC: 0DJD8ZZ Inspection of Lower Intestinal Tract, Via Natural or Artificial Opening Endoscopic (ICD-10-PCS; CPT 45378; principal; 2025-08-07 10:15)
DX: Z12.11 Encounter for screening for malignant neoplasm of colon (principal); K57.30 Diverticulosis of large intestine without perforation or abscess without bleeding
CPT/HCPCS: 45378